=== PATIENT | male | born 1950 | race Caucasian/White ===

== ENCOUNTER 2024-10-29 06:24 | Day surgery (SDC) | payer MEDICARE ==
[~2024-10-29 06:24] MED LIST: Propofol 200 MG/20 ML SDV ONE
[2024-10-29] MEDS ORDERED: Lactated Ringers 1,000 ML IV ONE (06:25)
[2024-10-29] MEDS ORDERED: Propofol 200 MG/20 ML SDV IV ONE (06:25)
[2024-10-29] MEDS: Lactated Ringers 1,000 ML IV SCH (07:08)
== END 2024-10-29 09:15 | disposition home or self-care (01) ==
LOC: DL.ENDO 06:24
PROVIDERS: ATTEND Internal Medicine Gastroenterology
DX: Z12.11 Encounter for screening for malignant neoplasm of colon (principal); D12.0 Benign neoplasm of cecum; K57.30 Diverticulosis of large intestine without perforation or abscess without bleeding; I10 Essential (primary) hypertension; E66.9 Obesity, unspecified; F17.210 Nicotine dependence, cigarettes, uncomplicated; Z79.899 Other long term (current) drug therapy
CPT/HCPCS: 00811; 45385; 88305; 99100; J7120; J2003; J2704